=== PATIENT | female | born 2000 | race Caucasian/White ===

== ENCOUNTER 2023-10-01 21:36 | Inpatient (IN) ==
[2023-10-01 22:27] LABS: Urine Appearance Clear; Urine Bilirubin Negative (Negative); Urine Blood Trace (Negative); Urine Color Light-Yellow; Urine Glucose Negative (Negative); Urine Ketones 1+ (Negative); Urine Nitrite Negative (Negative); Urine Protein Negative (Negative); Urine Specific Gravity 1.016 (1.002-1.030); Urine Urobilinogen Negative (Negative); Urine pH 6.5 (5.0-8.0)
[2023-10-01 22:45] LABS: Urine Bacteria Absent /HPF (Absent); Urine Red Blood Cell Absent /HPF (0-Trace); Urine Squamous Epithelial Cell Present /HPF (Absent); Urine White Blood Cell 1+(6-10/hpf) /HPF (0-Trace)
[2023-10-01 22:55] LABS: Urine Benzodiazepine Screen None Detected (None Detect); Urine Cannabinoids Screen None Detected (None Detect); Urine Opiates Screen None Detected (None Detect)
[2023-10-02] MEDS ORDERED: Al Hydrox/Mg Hydrox/Simet LIQ 30 ML UDC PO PRN (00:04)
[2023-10-02 07:51] LABS: ABS Eosinophils 0.1 10^3/uL (0.0-0.5); ABS Lymphocytes 1.3 10^3/uL (1.0-4.8); ABS Monocytes 0.6 10^3/uL (0.0-0.9); ABS Neutrophils 3.1 10^3/uL (1.5-7.6); ABS Nucleated RBC 0.01 10^3/ul; Eosinophil % 1.7 %; Hematocrit 44.5 % (35-45); Hemoglobin 15.6 g/dL (11.5-14.3); Lymphocyte % 25.7 %; Mean Corpuscular Hemoglobin 29.9 pg (27-33); Mean Corpuscular Hgb Conc 35.1 g/dL (31-36); Mean Corpuscular Volume 85.4 fL (80-97); Mean Platelet Volume 7.4 fL (7.5-11.2); Nucleated Red Blood Cells % 0.1 %/100WBC (0.0-0.8); Platelet Count 181 10^3/uL (150-450); Red Blood Count 5.21 10^6/uL (3.63-4.92); White Blood Count 5.2 10^3/uL (3.8-11.8)
[2023-10-02 08:08] LABS: ALT 9 U/L (7-52); AST 11 U/L (13-39); Albumin 4.5 g/dL (3.2-5.2); Alkaline Phosphatase 52 U/L (35-149); Anion Gap 8 mmol/L (2-16); Blood Urea Nitrogen 11 mg/dL (6-24); CO2 Carbon Dioxide 25 mmol/L (22-32); Calcium 9.3 mg/dL (8.6-10.3); Chloride 105 mmol/L (101-111); Cholesterol 152 mg/dL; Creatinine, Serum 0.98 mg/dL (0.51-0.95); Globulin 2.3 g/dL (2-4); Glucose 86 mg/dL (70-100); HDL Cholesterol 39.2 mg/dL; LDL Cholesterol 101 mg/dL; Sodium 138 mmol/L (135-145); Total Bilirubin 0.9 mg/dL (0.2-1.0); Total Protein 6.8 g/dL (6.4-8.9); Triglycerides 58 mg/dL; eGFR CKD-EPI 84.2 (>60)
[2023-10-02 08:14] LABS: HCG Pregnancy < 0.60 mIU/mL
[2023-10-02 08:23] LABS: TSH Ultra Thyroid Stim Horm 3.67 mcIU/mL (0.34-5.60)
[2023-10-02] MEDS: Vitamin THERAPEUTIC TAB PO SCH (11:04)
[2023-10-05 09:58] VITALS: BP 118/67
== END 2023-10-05 12:16 | disposition home or self-care (01) | DRG 751 ==
LOC: ED 21:36 → EDHOLD 10-02 00:03 → BSU 10-02 00:30
PROVIDERS: ADMIT Psychiatry & Neurology Psychiatry; ATTEND Psychiatry & Neurology Psychiatry